=== PATIENT | male | born 1950 | race Caucasian/White ===

== ENCOUNTER 2016-08-12 17:15 | Emergency (ER) | payer MEDICARE ==
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
--- NOTE | ~2016-08-12 | ER ---
PATIENT'S NAME: WIL FRIEDMAN [facility] AGE: 66 Y [address] ROOM: [place] [address] LOCATION: [facility] ADMIT DATE: 08/12/2016 ER/Outpatient Report DISCHARGE DATE: 08/12/2016 FAMILY PHYSICIAN: PHYSICIAN, NO ATTENDING PHYSICIAN: Saira Robb ADDENDUM: Wil is a 66-year-old male who presented to the emergency room with bug bites to his right arm and swelling. I did take over care for Little Lira APRN [employer], did review the chart and received report. At this point, the patient had had one Benadryl, the swelling had improved. I did reassess the patient, he reports the swelling is better, he is not near as itchy to his back as he had been. He still has a few welts to his back, but per his brother they are improved. The patient did not experience any swelling to his face, chest tightness, shortness of breath. He currently is here visiting from [place]. I did provide discharge instructions to the patient in which he is going to take another Benadryl 25 mg 1 p.o. at 11 p.m. this evening, also he will repeat this in the morning. With the administration of this here, it did not make him very sleepy. He has one little red lesion to his left second finger at the PIP joint in which he will use a little bit of triple antibiotic cream as needed. He is a diabetic, so he is going to watch this area closely. Also he may use a little hydrocortisone cream to his bug bite areas if they are itching, we did review signs and symptoms of infection and make sure he is not scratching at these areas. If he would have any onset of facial swelling, shortness of breath, or chest tightness, he is to return to the emergency room. His brother is here with him, agreeable with plan of care. The patient is stable. WERO KHAN APRN FOR MD TERESA LOPEZ/rashida /[id number] d: 08/13/16 0108 t: 08/24/16 1202, OUTPATIENT REPORT
[2016-08-12 18:01] LABS: BASOPHIL # 0.1 K/uL (0.0-0.2); BASOPHIL % 0.8 %; EOSINOPHIL # 0.4 K/uL (0.0-0.5); EOSINOPHIL % 5.7 %; HEMATOCRIT 41.2 % (37.0-53.0); HEMOGLOBIN 14.1 g/dL (11.0-16.0); IMMATURE GRANULOCYTE % 0.3 %; LYMPHOCYTE # 2.5 K/uL (0.8-4.0); LYMPHOCYTE % 32.9 %; MCH 30.3 pg (27.0-34.0); MCHC 34.2 gm/dL (32.0-36.5); MCV 88.6 fl (83.0-98.0); MONOCYTE # 0.8 K/uL (0.0-1.0); MPV 10.5 fl (9.4-12.4); NEUTROPHIL # (ANC) 3.8 K/uL (1.4-9.0); NEUTROPHIL % 49.3 %; NRBC % 0 /100WBC (0-0.00); PLATELET COUNT 338 K/uL (150-450); RBC 4.65 M/uL (3.50-5.50); WBC 7.7 K/uL (4.0-11.0)
[2016-08-12 18:15] LABS: ALBUMIN 3.7 gm/dL (3.5-5.0); ANION GAP 13.4 (10.0-19.0); CALCIUM 8.8 mg/dL (8.5-10.5); CREATININE 1.4 mg/dL (0.6-1.3); POTASSIUM 3.4 mMol/L (3.7-5.1); TOTAL BILIRUBIN 0.4 mg/dL (0.0-1.5); TOTAL PROTEIN 7.5 g/dL (6.0-8.4)
== END 2016-08-12 18:43 | disposition disaster alternative care site (69) ==
LOC: GMED 17:15
PROVIDERS: Nurse Practitioner Family
DX: S40.861A Insect bite (nonvenomous) of right upper arm, initial encounter (principal); Z91.030 Bee allergy status; W57.XXXA Bitten or stung by nonvenomous insect and other nonvenomous arthropods, initial encounter; Z79.84 Long term (current) use of oral hypoglycemic drugs